=== PATIENT | male | born 1995 | race Caucasian/White ===

== ENCOUNTER 2018-07-01 21:33 | Emergency (ER) | payer OTHER ==
[2018-07-01 21:49] VITALS: BP 139/71; PULSE 90; TEMP 98.5; BMI 39.0
[2018-07-01] MEDS ORDERED: DIPHTH,PERTUSS(ACELL),TET 0.5 ML DISP.SYRIN IM ONE (22:38)
--- NOTE | 2018-07-01 22:41 | PDOC ---
History of Present Illness - General Chief Complaint: Laceration Stated Complaint: LACERATION TO FINGER Time Seen by Provider: 07/01/18 22:22 History Source: Patient Exam Limitations: Clinical Condition - History of Present Illness Initial Comments: 07/01/18 22:42 Patient with no significant past medical history present with laceration to the posterior aspect of left index finger by a glass an hour ago. Patient not sure of last tetanus vaccine. Patient denies any other symptoms Timing/Duration: 1 hour Past History - Past Medical History Home Medications: Ambulatory Orders Cephalexin Monohydrate [Keflex -] 500 mg PO BID 5 Days #10 capsule 07/01/18 Mupirocin Ointment [Bactroban 2% Ointment -] 1 applic TP BID #1 tube 07/01/18 - Suicide/Smoking/Psychosocial Hx Smoking History: Never smoked Information on smoking cessation initiated: No Hx Alcohol Use: No Drug/Substance Use Hx: No Review of Systems - Review of Systems Able to Perform ROS?: Yes Is the patient limited [place]araguan proficient: No Constitutional: No: Chills, Diaphoresis, Fever, Loss of Appetite, Malaise, Night Sweats, Weakness, Weight Stable, Unintentional Wgt. Loss, Unexplained wgt Loss, Other HEENTM: No: Eye Pain, Blurred Vision, Tearing, Recent change in vision, Double Vision, Cataracts, Ear Pain, Ocular Prothesis, Ear Discharge, Nose Pain, Nose Congestion, Tinnitus, Nose Bleeding, Hearing Loss, Throat Pain, Throat Swelling , Mouth Pain, Dental Problems, Difficulty Swallowing, Mouth Swelling, Other Respiratory: No: Cough, Orthopnea, Shortness of Breath, SOB with Exertion, SOB at Rest, Stridor, Wheezing, Productive cough, Hemoptysis, Other Cardiac (ROS): No: Chest Pain, Edema, Irregular Heart Rate, Lightheadedness, Palpitations, Syncope, Chest Tightness, Other ABD/GI: No: Abdominal Distended, Abd. Pain w/ defecation, Blood Streaked Bowels , Constipated, Diarrhea, Difficulty Swallowing, Nausea, Poor Appetite, Poor Fluid Intake, Rectal Bleeding, Vomiting, Indigestion, Abdominal cramping, Tarry Stools, Other Musculoskeletal: Yes: Joint Pain (left index finger ), Muscle Pain (left index finger over wound). No: Symptoms Reported, See HPI, Back Pain, Gout, Joint Swelling, Muscle Weakness, Neck Pain, Joint Stiffness, Other Integumentary: Yes: See HPI, Other (laceration of posterior proximal phalange left index finger) All Other Systems: Reviewed and Negative *Physical Exam - Vital Signs Last Vital Signs Temp Pulse Resp BP Pulse Ox 98.5 F 90 20 139/71 98 07/01/18 21:47 07/01/18 21:47 07/01/18 21:47 07/01/18 21:47 07/01/18 21:47 - Physical Exam Comments: 07/01/18 22:45 GENERAL: Well developed, well nourished. Awake and alert. No acute distress. HEENT: Normocephalic, atraumatic. PERRLA, EOMI. No conjunctival pallor. Sclera are non- icteric. Moist mucous membranes. Oropharynx is clear. NECK: Supple. Full ROM. No JVD. Carotid pulses 2+ and symmetric, without bruits. No thyromegaly. No lymphadenopathy. CARDIOVASCULAR: Regular rate and rhythm. No murmurs, rubs, or gallops. Distal pulses are 2+ and symmetric. PULMONARY: No evidence of respiratory distress. Lungs clear to auscultation bilaterally. No wheezing, rales or rhonchi. ABDOMINAL: Soft. Non-tender. Non-distended. No rebound or guarding. No organomegaly. Normoactive bowel sounds. MUSCULOSKELETAL Normal range of motion at all joints. No bony deformities or tenderness. No CVA tenderness. EXTREMITIES: No cyanosis. No clubbing. No edema. No calf tenderness. SKIN: 3 cm superficial laceration to posterior aspects of proximal phalangeal left index finger with moderate bleeding . NEUROLOGICAL: Alert, awake, appropriate. Cranial nerves 2-12 intact. No deficits to light touch and temperature in face, upper extremities and lower extremities. No motor deficits in the in face, upper extremities and lower extremities. Normoreflexic in the upper and lower extremities. Normal speech. Toes are down- going bilaterally. Gait is normal without ataxia. PSYCHIATRIC: Cooperative. Good eye contact. Appropriate mood and affect. General Appearance: Yes: Nourished, Appropriately Dressed. No: Apparent Distress Procedures - Laceration/Wound Repair Left Posterior Proximal Dorsal Finger 2nd digit Wound Length: 2.6 to 5.0 cm Wound Explored: clean Wound's Depth, Shape: superficial, linear Irrigated w/ Saline: Yes Betadine Prep: Yes Anesthesia: 1% Lidocaine Amount of Anesthetic (ccs): 1 Wound Repaired With: Sutures Suture Size/Type: 4:0 Number of Sutures: 3 Layer Closure: No Sterile Dressing Applied: Yes Splint Applied: No Sling Applied: No Progress: 07/01/18 22:48 Laceration to posterior left index finger clean with Betadine .wound infiltrated with 2 mL 1% lidocaine. Wound closed with 3 interrupted 4 nylon sutures. Tetanus vaccine given. Bacitracin applied to wound and wound covered with adhesive bandage. Patient tolerated procedure well and left without complication Medical Decision Making - Medical Decision Making 07/01/18 22:46 Patient with no significant past medical history presenting with laceration to posterior aspect of proximal phalanx of left index finger with a glass. Wound cleaned and closed with 3 interrupted sutures. Tetanus vaccines given due to unknown last vaccine. Patient tolerated procedure well and advised on home wound care with follow-up in one week for suture removal *DC/Admit/Observation/Transfer Diagnosis at time of Disposition: Laceration of left index finger Qualifiers: Encounter type: initial encounter Damage to nail status: without damage Foreign body presence: without foreign body Qualified Code(s): S61.211A - Laceration without foreign body of left index finger without damage to nail, initial encounter - Discharge Dispostion Disposition: HOME Condition at time of disposition: Stable Decision to Admit order: No - Prescriptions Prescriptions: Cephalexin Monohydrate [Keflex -] 500 mg PO BID 5 Days #10 capsule Mupirocin Ointment [Bactroban 2% Ointment -] 1 applic TP BID #1 tube - Referrals Referrals: ON STAFF,NOT [Primary Care Provider] - - Patient Instructions Printed Discharge Instructions: DI for Laceration Repair Additional Instructions: take medications as prescribed. follow-up in 7-10days for suture removal - Post Discharge Activity
== END 2018-07-01 22:47 | disposition home or self-care (01) ==
LOC: JERFT 21:33
PROC: 0HQGXZZ Repair Left Hand Skin, External Approach (ICD-10-PCS; principal; 2018-07-01)
DX: S61.211A Laceration without foreign body of left index finger without damage to nail, initial encounter (principal); W25.XXXA Contact with sharp glass, initial encounter; Y93.89 Activity, other specified; Y92.9 Unspecified place or not applicable
CPT/HCPCS: 90715; 99281-25

== ENCOUNTER 2018-12-27 19:29 | Emergency (ER) | payer OTHER ==
--- NOTE | 2018-12-27 19:44 | PDOC ---
Rapid Medical Evaluation Time Seen by Provider: 12/27/18 19:41 Medical Evaluation: Allergies Allergy/AdvReac Type Severity Reaction Status Date / Time No Known Allergies Allergy Verified 07/12/18 17:00 12/27/18 19:41 Pt presents to the ED with R flank pain radiating to the R lower back starting today. Pt states it is difficult to urinate Exam: TTP of the R flank Orders: labs, urine, IV Pt to proceed to the ED for further evaluation Discharge Disposition - Diagnosis Back pain - Referrals - Patient Instructions - Post Discharge Activity
[2018-12-27 19:45] VITALS: BP 126/84; PULSE 76; TEMP 98.2; BMI 41.7
[2018-12-27 20:35] LABS: BASO % 0.7 % (0-2.0); EOS % 0.2 % (0-4.5); HEMATOCRIT 44.7 % (35.4-49); HEMOGLOBIN 15.7 GM/dL (11.7-16.9); MCH 30.6 pg (25.7-33.7); MCHC 35.2 g/dl (32.0-35.9); MEAN PLT VOLUME 11.1 fl (7.5-11.1); MONO % 5.3 % (3.8-10.2); NEUT % 81.8 % (42.8-82.8); PLATELET COUNT 174 K/MM3 (134-434); RBC 5.14 M/mm3 (4.00-5.60); RDW 13.6 % (11.9-15.9); WHITE BLOOD COUNT 14.9 K/mm3 (4.0-10.0)
[2018-12-27 20:39] LABS: URINE APPEARANCE CLEAR; URINE BILIRUBIN NEGATIVE (<2.0 mg/dL); URINE COLOR STRAW; URINE GLUCOSE (UA) NEGATIVE (NEGATIVE); URINE KETONE NEGATIVE (NEGATIVE); URINE LEUK ESTERASE NEGATIVE (NEGATIVE); URINE NITRITE NEGATIVE (NEGATIVE); URINE PROTEIN NEGATIVE (NEGATIVE); URINE UROBILINOGEN NEGATIVE mg/dL (0.2-1.0)
[2018-12-27 20:49] LABS: EPI CELLS RARE /HPF (FEW); URINE MUCUS RARE
[2018-12-27 21:02] LABS: ALBUMIN 3.9 g/dl (3.4-5.0); ALK PHOS 67 U/L (45-117); ANION GAP 8 MMOL/L (8-16); BILIRUBIN,TOTAL 0.5 mg/dL (0.2-1); BLOOD UREA NITROGEN 17 mg/dL (7-18); CALCIUM 8.9 mg/dL (8.5-10.1); CHLORIDE 105 mmol/L (98-107); CO2 29 mmol/L (21-32); CREATININE 0.8 mg/dL (0.55-1.3); GLUCOSE,RANDOM 105 mg/dL (74-106); POTASSIUM 4.2 mmol/L (3.5-5.1); SGOT/AST 21 U/L (15-37); SGPT/ALT 35 U/L (13-61); SODIUM 142 mmol/L (136-145); TOT PROT 7.4 g/dl (6.4-8.2)
--- NOTE | 2018-12-27 21:13 | PDOC ---
History of Present Illness - General Chief Complaint: Pain, Acute Stated Complaint: BACK PAIN Time Seen by Provider: 12/27/18 19:41 History Source: Patient - History of Present Illness Initial Comments: 12/27/18 21:13 23 year old male with right flank pain radiating to right groin since 2 pm reports pain is intermittent in nature. + chills. denies NVD, penile discharge testicular painfever,patient is currently asymptomatic last bm: today. PMHX; none Vaccines up to date. 12/27/18 23:33 Past History - Past Medical History Allergies/Adverse Reactions: Allergies Allergy/AdvReac Type Severity Reaction Status Date / Time No Known Allergies Allergy Verified 07/12/18 17:00 Home Medications: Ambulatory Orders Cephalexin Monohydrate [Keflex -] 500 mg PO BID 5 Days #10 capsule 07/01/18 Mupirocin Ointment [Bactroban 2% Ointment -] 1 applic TP BID #1 tube 07/01/18 COPD: No DVT: No - Immunization History Immunization Up to Date: Yes - Suicide/Smoking/Psychosocial Hx Smoking History: Never smoked Information on smoking cessation initiated: No Hx Alcohol Use: No Drug/Substance Use Hx: No Substance Use Type: None Review of Systems - Review of Systems Able to Perform ROS?: Yes Is the patient limited Luxembourgish proficient: No Constitutional: Yes: Chills. No: Symptoms Reported, See HPI, Diaphoresis, Fever , Loss of Appetite, Malaise, Night Sweats, Weakness, Weight Stable, Unintentional Wgt. Loss, Unexplained wgt Loss, Other ABD/GI: No: Symptoms Reported, See HPI, Abdominal Distended, Abd. Pain w/ defecation, Blood Streaked Bowels, Constipated, Diarrhea, Difficulty Swallowing , Nausea, Poor Appetite, Poor Fluid Intake, Rectal Bleeding, Vomiting, Indigestion, Abdominal cramping, Tarry Stools, Other : Yes: Flank Pain (right flank radiating to right groin) Musculoskeletal: No: Symptoms Reported, See HPI, Back Pain, Gout, Joint Pain, Joint Swelling, Muscle Pain, Muscle Weakness, Neck Pain, Joint Stiffness, Other Neurological: No: Symptoms reported, See HPI, Headache, Numbness, Paresthesia, Pre-Existing Deficit, Seizure, Tingling, Tremors, Weakness, Unsteady Gait, Ataxia, Dizziness, Other *Physical Exam - Vital Signs Last Vital Signs Temp Pulse Resp BP Pulse Ox 98.2 F 76 20 126/84 98 12/27/18 19:41 12/27/18 19:41 12/27/18 19:41 12/27/18 19:41 12/27/18 19:41 - Physical Exam General Appearance: Yes: Appropriately Dressed Respiratory/Chest: positive: Lungs Clear, Normal Breath Sounds Gastrointestinal/Abdominal: positive: Normal Bowel Sounds Moderate Sedation - Procedure Monitoring Vital Signs: Procedure Monitoring Vital Signs Temperature 98.2 F 12/27/18 19:41 Pulse Rate 76 12/27/18 19:41 Respiratory Rate 20 12/27/18 19:41 Blood Pressure 126/84 12/27/18 19:41 O2 Sat by Pulse Oximetry (%) 98 12/27/18 19:41 ED Treatment Course - LABORATORY CBC & Chemistry Diagram: 12/27/18 20:16 12/27/18 20:16 - ADDITIONAL ORDERS Additional order review: Laboratory Results 12/27/18 12/27/18 20:16 20:10 Sodium 142 Potassium 4.2 Chloride 105 Carbon Dioxide 29 Anion Gap 8 BUN 17 Creatinine 0.8 Creat Clearance w eGFR > 60 Random Glucose 105 Calcium 8.9 Total Bilirubin 0.5 AST 21 ALT 35 Alkaline Phosphatase 67 Total Protein 7.4 Albumin 3.9 Urine Color Straw Urine Appearance Clear Urine pH 5.0 Ur Specific [place] 1.012 Urine Protein Negative Urine Glucose (UA) Negative Urine Ketones Negative Urine Blood 3+ H Urine Nitrite Negative Urine Bilirubin Negative Urine Urobilinogen Negative Ur Leukocyte Esterase Negative Urine WBC (Auto) 1 Urine RBC (Auto) 56 Ur Epithelial Cells Rare Urine Mucus Rare 12/27/18 20:16 RBC 5.14 MCV 87.0 MCHC 35.2 RDW 13.6 MPV 11.1 Neutrophils % 81.8 Lymphocytes % 12.0 Monocytes % 5.3 Eosinophils % 0.2 Basophils % 0.7 Medical Decision Making - Medical Decision Making 12/27/18 23:35 patient currently has no symptoms. results reviewed. will d.c home. *DC/Admit/Observation/Transfer Diagnosis at time of Disposition: Right flank pain - Discharge Dispostion Disposition: HOME - Referrals Referrals: ON STAFF,NOT [Primary Care Provider] - Harris Hua MD [Staff Physician] - Call tomorrow - Patient Instructions Printed Discharge Instructions: Kidney Stones -- Adult Additional Instructions: drink plenty of fluids follow up with your doctor as soon as possible.. follow up with a urologist Additional Instructions: * Please call your personal physician to report your Emergency Department visit and to report your progress, if any. * If there is no improvement in symptoms in 2 days call your physician. * Return to the Emergency Department for any worsening symptoms. - Post Discharge Activity Forms/Work/School Notes: Back to School
--- NOTE | 2018-12-27 21:45 | PDOC ---
*Physical Exam - Vital Signs Last Vital Signs Temp Pulse Resp BP Pulse Ox 98.2 F 76 20 126/84 98 12/27/18 19:41 12/27/18 19:41 12/27/18 19:41 12/27/18 19:41 12/27/18 19:41 ED Treatment Course - LABORATORY CBC & Chemistry Diagram: 12/27/18 20:16 12/27/18 20:16 - ADDITIONAL ORDERS Additional order review: Laboratory Results 12/27/18 12/27/18 20:16 20:10 Sodium 142 Potassium 4.2 Chloride 105 Carbon Dioxide 29 Anion Gap 8 BUN 17 Creatinine 0.8 Creat Clearance w eGFR > 60 Random Glucose 105 Calcium 8.9 Total Bilirubin 0.5 AST 21 ALT 35 Alkaline Phosphatase 67 Total Protein 7.4 Albumin 3.9 Urine Color Straw Urine Appearance Clear Urine pH 5.0 Ur Specific [place] 1.012 Urine Protein Negative Urine Glucose (UA) Negative Urine Ketones Negative Urine Blood 3+ H Urine Nitrite Negative Urine Bilirubin Negative Urine Urobilinogen Negative Ur Leukocyte Esterase Negative Urine WBC (Auto) 1 Urine RBC (Auto) 56 Ur Epithelial Cells Rare Urine Mucus Rare 12/27/18 20:16 RBC 5.14 MCV 87.0 MCHC 35.2 RDW 13.6 MPV 11.1 Neutrophils % 81.8 Lymphocytes % 12.0 Monocytes % 5.3 Eosinophils % 0.2 Basophils % 0.7 Medical Decision Making - Medical Decision Making 12/27/18 21:45 Patient seen by the advanced practice provider under my direct supervision. Ancillary testing reviewed as necessary. I agree with plan as outlined by the advanced practice provider. *DC/Admit/Observation/Transfer Diagnosis at time of Disposition: Right flank pain - Discharge Dispostion Disposition: HOME Condition at time of disposition: Fair - Referrals Referrals: Harris Hua MD [Staff Physician] - Call tomorrow ON STAFF,NOT [Primary Care Provider] - - Patient Instructions Printed Discharge Instructions: Kidney Stones -- Adult Additional Instructions: drink plenty of fluids follow up with your doctor as soon as possible.. follow up with a urologist Additional Instructions: * Please call your personal physician to report your Emergency Department visit and to report your progress, if any. * If there is no improvement in symptoms in 2 days call your physician. * Return to the Emergency Department for any worsening symptoms. - Post Discharge Activity Forms/Work/School Notes: Back to School
== END 2018-12-28 00:20 | disposition home or self-care (01) ==
LOC: JER 19:29
DX: R10.31 Right lower quadrant pain (principal)
CPT/HCPCS: 36415; 74176; 80053; 81003; 81015; 85025; 87086; 99281-25

== ENCOUNTER 2020-05-15 01:06 | Emergency (ER) | payer OTHER ==
[2020-05-15 01:14] VITALS: BMI 42.3
--- NOTE | 2020-05-15 02:02 | PDOC ---
History of Present Illness - General Chief Complaint: Pain, Acute Stated Complaint: UPPER RIGHT QUADRANT PAIN Time Seen by Provider: 05/15/20 01:55 History Source: Patient - History of Present Illness Initial Comments: 05/15/20 02:56 25-year-old male with history of kidney stone complaining of right flank pain started at last night night while sleeping. Patient "it woke me out of sleep ". Denies dysuria, frequency, oliguria, fever/chills, nausea, vomiting, diarrhea, abdominal pain, testicular pain 05/15/20 03:50 Past History - Medical History Allergies/Adverse Reactions: Allergies Allergy/AdvReac Type Severity Reaction Status Date / Time No Known Allergies Allergy Verified 05/15/20 01:14 Home Medications: Ambulatory Orders Cephalexin Monohydrate [Keflex -] 500 mg PO BID 5 Days #10 capsule 07/01/18 Mupirocin Ointment [Bactroban 2% Ointment -] 1 applic TP BID #1 tube 07/01/18 COPD: No DVT: No - Immunization History Immunization Up to Date: Yes - Psycho-Social/Smoking History Smoking History: Never smoked - Substance Abuse Hx (Audit-C & DAST Scrn) How often the patient has a drink containing alcohol: Monthly or less Score: In Men: 4 or > Positive; In Women: 3 or > Positive: 1 Screen Result (Pos requires Nsg. Audit-10AR): Negative Review of Systems - Review of Systems Able to Perform ROS?: Yes Is the patient limited Yemeni proficient: No ABD/GI: No: Symptoms Reported, See HPI, Abdominal Distended, Abd. Pain w/ defecation, Blood Streaked Bowels, Constipated, Diarrhea, Difficulty Swallowing, Nausea, Poor Appetite, Poor Fluid Intake, Rectal Bleeding, Vomiting, Indigestion, Abdominal cramping, Tarry Stools, Other : Yes: Flank Pain. No: Symptoms Reported, See HPI, Burning, Dysuria, Discharge, Frequency, Hematuria, Incontinence, Pain, Urgency, Testicular Mass, Testicular Swelling, Lesions, Testicular Pain, Other *Physical Exam - Vital Signs Last Vital Signs Temp Pulse Resp BP Pulse Ox 97.6 F 80 18 110/74 99 05/15/20 01:11 05/15/20 01:11 05/15/20 01:11 05/15/20 01:11 05/15/20 01:11 - Physical Exam General Appearance: Yes: Appropriately Dressed Respiratory/Chest: positive: Lungs Clear, Normal Breath Sounds Gastrointestinal/Abdominal: positive: Normal Bowel Sounds, Soft. negative: Tender Musculoskeletal: positive: CVA Tenderness (R) Extremity: positive: Normal Capillary Refill, Normal Inspection, Normal Range of Motion Integumentary: positive: Normal Color, Dry, Warm Neurologic: positive: Fully Oriented, Alert, Normal Mood/Affect ED Treatment Course - LABORATORY CBC & Chemistry Diagram: 05/15/20 02:45 05/15/20 02:43 ED Progress Note - Progress Note Progress Note: 05/15/20 04:06 renal colic P : ivf pain control urology follow up Medical Decision Making - Medical Decision Making 05/15/20 03:51 There is very slight dilatation of the right renal collecting system and ureter relative to the left but no gross hydronephrosis and no appreciable ureteral stone. There are calcifications posterior to the urinary bladder but they are felt to be phleboliths. It is possible that there was a stone that already passed. Alternatively, UTI can cause slight dilatation of the ureter and collecting systems. No bowel obstruction or inflammation. Normal appendix. Negative for diverticulitis or colitis. Normal liver. No gallbladder abnormalities Normal spleen. There is some fatty infiltration of the pancreas. Normal adrenal glands. No free intraperitoneal air or free fluid. Osseous structures are intact. Discharge - Discharge Information Problems reviewed: Yes Clinical Impression/Diagnosis: Renal colic on right side Condition: Improved Disposition: HOME - Follow up/Referral Referrals: Jason Gordon MD [Staff Physician] - Call tomorrow - Patient Discharge Instructions Patient Printed Discharge Instructions: Kidney Stones -- Adult Additional Instructions: Drink plenty of fluids. It is possible you passed a kidney stone. Take ibuprofen every 6 hours as needed for pain. Follow-up with your urologist as soon as possible. - Post Discharge Activity
--- NOTE | 2020-05-15 02:09 | PDOC ---
*Physical Exam - Vital Signs Last Vital Signs Temp Pulse Resp BP Pulse Ox 97.6 F 80 18 110/74 99 05/15/20 01:11 05/15/20 01:11 05/15/20 01:11 05/15/20 01:11 05/15/20 01:11 ED Treatment Course - LABORATORY CBC & Chemistry Diagram: 05/15/20 02:45 05/15/20 02:43 Medical Decision Making - Medical Decision Making 05/15/20 02:08 Patient seen by the advanced practice provider under my supervision. Ancillary testing reviewed as necessary. I agree with plan as outlined by the advanced practice provider. Discharge - Discharge Information Problems reviewed: Yes Clinical Impression/Diagnosis: Renal colic on right side Disposition: HOME - Follow up/Referral Referrals: Jason Gordon MD [Staff Physician] - Call tomorrow - Patient Discharge Instructions Patient Printed Discharge Instructions: Kidney Stones -- Adult Additional Instructions: Drink plenty of fluids as prescribed. It is possible you passed a kidney stone. Take ibuprofen every 6 hours as needed for pain. Follow-up with your urologist as soon as possible. - Post Discharge Activity
[2020-05-15] MEDS ORDERED: ACETAMINOPHEN 1000 MG/100 ML VIAL (NON FORMULARY) IVPB ONE (02:21)
[2020-05-15] MEDS ORDERED: SODIUM CHLORIDE 1,000 ML IV STA (02:21)
[2020-05-15] MEDS ORDERED: morphine CARPU-JECT 2 MG/1 ML DISP.SYRIN IVPUSH ONE (02:21)
[2020-05-15] MEDS ORDERED: MORPHINE SULFATE 2 MG/ML VIAL ONE (02:34)
[2020-05-15] MEDS ORDERED: ACETAMINOPHEN INJECTION 100 ML IVPB ONE (02:34)
[2020-05-15 02:38] LABS: EPI CELLS 13 /uL (0-25.1); HYALINE CASTS 2 /uL (0-3.1); URINE APPEARANCE CLOUDY; URINE BACTERIA 188 /uL (0-1359); URINE BILIRUBIN NEGATIVE (NEGATIVE); URINE COLOR YELLOW; URINE GLUCOSE (UA) NEGATIVE (NEGATIVE); URINE KETONE NEGATIVE (NEGATIVE); URINE LEUK ESTERASE TRACE (NEGATIVE); URINE NITRITE NEGATIVE (NEGATIVE); URINE PROTEIN TRACE (NEGATIVE); URINE UROBILINOGEN 0.2 mg/dL (0.2-1.0); URINE WBC 61 /uL (0-25.8)
[2020-05-15 03:31] LABS: BASO % 0.7 % (0-2.0); EOS % 1.1 % (0-4.5); HEMATOCRIT 45.6 % (35.4-49); HEMOGLOBIN 15.6 GM/dL (11.7-16.9); LYMPH % 34.8 % (8-40); MCH 29.5 pg (25.7-33.7); MCHC 34.2 g/dl (32.0-35.9); MEAN CELL VOLUME 86.5 fl (80-96); MEAN PLT VOLUME 11.8 fl (7.5-11.1); MONO % 6.9 % (3.8-10.2); NEUT % 56.5 % (42.8-82.8); PLATELET COUNT 150 K/MM3 (134-434); RBC 5.28 M/mm3 (4.00-5.60); RDW 13.4 % (11.9-15.9); WHITE BLOOD COUNT 10.7 K/mm3 (4.0-10.0)
[2020-05-15 03:43] LABS: URINE RBC 85 /uL (0-23.9)
[2020-05-15] MEDS ORDERED: KETOROLAC TROMETHAMINE 30 MG/1 ML VIAL IVPUSH ONE (03:55)
[2020-05-15 04:00] LABS: ALBUMIN 3.9 g/dl (3.4-5.0); BILIRUBIN,TOTAL 0.3 mg/dL (0.2-1); BLOOD UREA NITROGEN 15.6 mg/dL (7-18); CALCIUM 9.2 mg/dL (8.5-10.1); CREATININE 0.9 mg/dL (0.55-1.3); POTASSIUM 3.4 mmol/L (3.5-5.1); TOT PROT 6.9 g/dl (6.4-8.2)
[2020-05-15] MEDS ORDERED: KETOROLAC TROMETHAMINE 30 MG/1 ML VIAL ONE (04:05)
[2020-05-15 05:06] VITALS: BP 144/90; PULSE 70; TEMP 98.4
== END 2020-05-15 05:43 | disposition home or self-care (01) ==
LOC: JER 01:06
PROC: 3E0337Z Introduction of Electrolytic and Water Balance Substance into Peripheral Vein, Percutaneous Approach (ICD-10-PCS; principal; 2020-05-15)
PROC: 3E033GC Introduction of Other Therapeutic Substance into Peripheral Vein, Percutaneous Approach (ICD-10-PCS; principal; 2020-05-15)
DX: N23 Unspecified renal colic (principal)
CPT/HCPCS: 36415; 74176-TC; 80053; 81003; 85025; 99285-25; J0131

== ENCOUNTER 2021-05-12 10:31 | Emergency (ER) | payer OTHER ==
[2021-05-12 10:38] VITALS: BP 136/86; PULSE 64; TEMP 98.2; BMI 40.1
[2021-05-12] MEDS ORDERED: KETOROLAC TROMETHAMINE 30 MG/1 ML VIAL IM ONE (11:26)
[2021-05-12] MEDS ORDERED: KETOROLAC TROMETHAMINE 30 MG/1 ML VIAL ONE (11:29)
== END 2021-05-12 11:33 | disposition home or self-care (01) ==
LOC: JERFT 10:31
PROC: 3E0233Z Introduction of Anti-inflammatory into Muscle, Percutaneous Approach (ICD-10-PCS; principal; 2021-05-12)
DX: M54.42 Lumbago with sciatica, left side (principal)
CPT/HCPCS: 99284-25

== ENCOUNTER 2021-06-01 07:01 | Emergency (ER) | payer OTHER ==
[2021-06-01 07:13] VITALS: BP 131/78; PULSE 68; TEMP 98.8; BMI 40.8
[2021-06-01] MEDS ORDERED: KETOROLAC TROMETHAMINE 60 MG/2 ML VIAL IM ONE (08:22)
[2021-06-01] MEDS ORDERED: KETOROLAC TROMETHAMINE 60 MG/2 ML VIAL ONE (08:48)
== END 2021-06-01 09:21 | disposition home or self-care (01) ==
LOC: JER 07:01
PROC: 3E0233Z Introduction of Anti-inflammatory into Muscle, Percutaneous Approach (ICD-10-PCS; principal; 2021-06-01)
DX: M54.41 Lumbago with sciatica, right side (principal)
CPT/HCPCS: 99284-25

== ENCOUNTER 2023-05-15 10:16 | Emergency (ER) | payer OTHER ==
[2023-05-15 10:46] VITALS: BP 158/92; PULSE 68; RESP 18; TEMP 98.4; BMI 45.9
[2023-05-15] MEDS ORDERED: KETOROLAC TROMETHAMINE 30 MG/1 ML VIAL IM ONE (11:41)
[2023-05-15] MEDS ORDERED: ACETAMINOPHEN 500 MG TABLET (FP) PO ONE (11:41)
[2023-05-15] MEDS ORDERED: METHOCARBAMOL 500 MG TABLET PO ONE (11:41)
[2023-05-15] MEDS ORDERED: LIDOCAINE 5% TOPICAL PATCH TP ONE (11:42)
[2023-05-15] MEDS ORDERED: ACETAMINOPHEN 500 MG TABLET (FP) ONE (11:55)
[2023-05-15] MEDS ORDERED: LIDOCAINE 5% TOPICAL PATCH ONE (11:55)
[2023-05-15] MEDS ORDERED: KETOROLAC TROMETHAMINE 30 MG/1 ML VIAL ONE (11:55)
[2023-05-15] MEDS ORDERED: METHOCARBAMOL 500 MG TABLET ONE (11:55)
[2023-05-15] MEDS ORDERED: LIDOCAINE PATCH REMOVAL MC ONE (22:00)
== END 2023-05-15 12:03 | disposition home or self-care (01) ==
LOC: JERFT 10:16
PROC: 3E0233Z Introduction of Anti-inflammatory into Muscle, Percutaneous Approach (ICD-10-PCS; principal; 2023-05-15)
DX: M54.9 Dorsalgia, unspecified (principal); V89.2XXA Person injured in unspecified motor-vehicle accident, traffic, initial encounter; Y93.I9 Activity, other involving external motion; Y92.488 Other paved roadways as the place of occurrence of the external cause
CPT/HCPCS: 99284-25

== ENCOUNTER 2023-07-21 21:48 | Emergency (ER) | payer OTHER ==
[2023-07-21 21:56] VITALS: BP 143/84; PULSE 66; RESP 19; TEMP 98.6; BMI 46.6
[2023-07-21] MEDS ORDERED: IBUPROFEN 600 MG TABLET (FP) PO ONE ×2 (22:03→22:09)
== END 2023-07-21 22:53 | disposition home or self-care (01) ==
LOC: JER 21:48 → JERFT 21:48
DX: S90.112A Contusion of left great toe without damage to nail, initial encounter (principal); W22.8XXA Striking against or struck by other objects, initial encounter
CPT/HCPCS: 73630-TC-LT; 99283-25

== ENCOUNTER 2023-09-19 09:55 | Emergency (ER) | payer OTHER ==
[2023-09-19 09:58] VITALS: BP 128/79; PULSE 65; RESP 18; TEMP 97.8; BMI 45.8
[2023-09-19] MEDS ORDERED: LIDOCAINE 4% PATCH TP ONE ×2 (10:15→10:25)
[2023-09-19] MEDS ORDERED: ACETAMINOPHEN 500 MG TABLET (FP) PO ONE (10:16)
[2023-09-19] MEDS ORDERED: ACETAMINOPHEN 500 MG TABLET (FP) ONE (10:25)
[2023-09-19] MEDS ORDERED: LIDOCAINE PATCH REMOVAL MC ONE (22:00)
== END 2023-09-19 10:39 | disposition home or self-care (01) ==
LOC: JER 09:55 → JERFT 09:55
DX: M54.50 Low back pain, unspecified (principal)
CPT/HCPCS: 99283-25

== ENCOUNTER → 2023-11-30 | Day surgery (SDC) | payer OTHER | END | disposition home or self-care (01) | LOC: JRADIR 10:24 | PROVIDERS: ATTEND Internal Medicine Endocrinology, Diabetes & Metabolism | PROC: 0G9H3ZX Drainage of Right Thyroid Gland Lobe, Percutaneous Approach, Diagnostic (ICD-10-PCS; principal; 2023-11-30) | DX: C73 Malignant neoplasm of thyroid gland (principal) | CPT/HCPCS: 10005; 76942; 88173; 88305-TC ==

== ENCOUNTER 2024-01-06 03:51 | Day surgery (SDC) | payer OTHER ==
[2024-01-03 15:04] VITALS: BMI 47.3
[2024-01-06] MEDS ORDERED: LIDOCAINE HCL 1%, 10 MG/ML (20ML VIAL) ONE (13:05)
[2024-01-06] MEDS ORDERED: BUPIVACAINE HCL/PF 0.5% (5MG/ML) 10 ML VIAL ONE (13:05)
[2024-01-06] MEDS ORDERED: LIDOCAINE 1%/EPI 1:100000 (20 ML MULTI DOSE VIAL) ONE (13:06)
[2024-01-06] MEDS: ceFAZolin SODIUM 1 GM VIAL IVPB ONE ×3 (13:15→14:15)
[2024-01-06] MEDS: BUPIVACAINE HCL/PF 0.5% (5 MG/ML) 30 ML VIAL IJ ONE ×3 (13:17→14:28)
[2024-01-06] MEDS: LIDOCAINE 1%/EPI 1:100000 (20 ML MULTI DOSE VIAL) IJ ONE ×2 (13:17→14:28)
[2024-01-06] MEDS ORDERED: MIDAZOLAM HCL 2 MG/2 ML SINGLE DOSE VIAL ONE (13:33)
[2024-01-06] MEDS ORDERED: PROPOFOL 20 ML ONE (13:33)
[2024-01-06] MEDS ORDERED: SUCCINYLCHOLINE CHLORIDE 200 MG/10 ML SYRINGE ONE (13:34)
[2024-01-06] MEDS ORDERED: ROCURONIUM BROMIDE 50 MG/5 ML SYRINGE ONE (13:35)
[2024-01-06] MEDS ORDERED: oxyCODONE HCL 5 MG TABLET PO PRN ×2 (13:40)
[2024-01-06] MEDS ORDERED: ONDANSETRON 4 MG/2 ML VIAL IVPUSH PRN (13:40)
[2024-01-06] MEDS ORDERED: LACTATED RINGERS SOLUTION 1,000 ML IV SCH (13:45)
[2024-01-06] MEDS ORDERED: ACETAMINOPHEN INJECTION 100 ML IVPB ONE (14:12)
[2024-01-06 18:16] VITALS: BP 145/86; PULSE 76; RESP 16; TEMP 97.3
== END 2024-01-06 18:35 | disposition home or self-care (01) ==
LOC: JASU-SURG 03:51
PROVIDERS: ATTEND Surgery
PROC: 0GTH0ZZ Resection of Right Thyroid Gland Lobe, Open Approach (ICD-10-PCS; principal; 2024-01-06 14:00)
DX: C73 Malignant neoplasm of thyroid gland (principal)
CPT/HCPCS: 88307-TC; 94760; J0131